=== PATIENT | female | born 1995 | race Hispanic/Latino ===

== ENCOUNTER 2024-06-12 15:11 | Emergency (ER) | payer SELFPAY ==
[~2024-06-12] VITALS: Ht 170.2 cm; Wt 84.3 kg
[2024-06-12] VITALS (21 sets, daily range): BP systolic 83–117; BP diastolic 40–76
[~2024-06-12 15:11] MED LIST: KEFLEX500 MG PO; ZOFRAN4 MG/TAB PO
[2024-06-12] MEDS ORDERED: KETOROLAC TROMETHAMINE 30 MG/ML SDV IM ONE (15:20)
[2024-06-12] MEDS ORDERED: NABUMETONE750 MG PO (20:15)
[2024-06-12] MEDS ORDERED: CYCLOBENZAPRINE10 MG PO (20:15)
== END 2024-06-12 20:40 | disposition home or self-care (01) | DRG 563 ==
LOC: ED 15:11
DX: S39.012A Strain of muscle, fascia and tendon of lower back, initial encounter (principal); X50.0XXA Overexertion from strenuous movement or load, initial encounter